=== PATIENT | male | born 1985 | race Caucasian/White ===

== ENCOUNTER 2018-11-27 01:15 | Emergency (ER) | payer SELFPAY ==
[~2018-11-27] VITALS: Ht 188 cm; Wt 96.2 kg
[2018-11-27] MEDS ORDERED: ONDANSETRON ODT 4 MG TAB.RAPDIS ONE (01:26)
[2018-11-27] MEDS ORDERED: HALOPERIDOL LACTATE 5 MG/1 ML VIAL ONE (01:27)
[2018-11-27] MEDS ORDERED: HYDROCODONE/APAP 10-325 MG TABLET ONE (01:28)
--- NOTE | 2018-11-27 01:29 | NUR ---
Pt. brought back into ED by [employer] Officer Lester #[id number] and partner for c/o hand pain, pt. still in custody and in handcuffs,
[2018-11-27] MEDS ORDERED: HALOPERIDOL LACTATE 5 MG/1 ML VIAL IM ONE (01:30)
[2018-11-27] MEDS ORDERED: HYDROCODONE/APAP 10-325 MG TABLET PO ONE (01:30)
[2018-11-27] MEDS ORDERED: ONDANSETRON ODT 4 MG TAB.RAPDIS SL ONE (01:30)
--- NOTE | 2018-11-27 01:45 | NUR ---
Ulnar gutter ortho treatment applied - CMS intact - NAD,
--- NOTE | 2018-11-27 01:56 | NUR ---
Patient discharged to home in stable conditon. Written and verbal after care instructions given. Patient verbalizes understanding of instructions. Pt. d/c in custody of [employer] Officer Luis Felipe #[id number] and dorothy Batista to sign d/c paperwork, all belongings w/ pt., NAD,
== END 2018-11-27 01:56 ==
LOC: ER 01:15
DX: S62.304A Unspecified fracture of fourth metacarpal bone, right hand, initial encounter for closed fracture (principal); S00.33XA Contusion of nose, initial encounter; F10.129 Alcohol abuse with intoxication, unspecified; W22.01XA Walked into wall, initial encounter; Y93.89 Activity, other specified; Y92.89 Other specified places as the place of occurrence of the external cause; Y99.8 Other external cause status; Y90.9 Presence of alcohol in blood, level not specified
CPT/HCPCS: 29125; 73130; 99283; J1630; A4663; Q0162

== ENCOUNTER → 2018-11-27 | Emergency (ER) | payer SELFPAY ==
[~2018-11-27] VITALS: Ht 188 cm; Wt 96.2 kg
--- NOTE | 2018-11-27 00:57 | NUR ---
Pt. BIB [facility] while in custody w/ [employer] Officer Luis Felipe #[id number] w/ c/o R hand pain
--- NOTE | 2018-11-27 01:04 | NUR ---
Patient does not wish to proceed with medical care recommended by Dr. David. Patient given information related to possible complications, up to and including , which could occur as a result of leaving the hospital at this time. Patient verbalizes understanding of risks involved due to leaving against medical advice. Patient has signed AMA form. Pt. refused to sign AMA forms - witnessed and signed by Officer Luis Felipe #[id number], taken off unit in custody, NAD Addendum: 11/27/18 at 0105 by JESUS All belongings w/ pt.,
== END | disposition home or self-care (01) ==
LOC: ER 01:13
DX: S00.33XA Contusion of nose, initial encounter (principal); S69.91XA Unspecified injury of right wrist, hand and finger(s), initial encounter; F10.129 Alcohol abuse with intoxication, unspecified; X58.XXXA Exposure to other specified factors, initial encounter; Y93.89 Activity, other specified; Y92.89 Other specified places as the place of occurrence of the external cause; Y99.8 Other external cause status
CPT/HCPCS: A4663